=== PATIENT | male | born 1980 | race African-American/Black ===

== ENCOUNTER 2016-05-08 11:43 | Emergency (ER) | payer OTHER, MEDICARE ==
--- NOTE | 2016-05-08 11:55 | ER Document Report ---
ED Medical Screen (RME) - General Stated Complaint: MOUTH PAIN Notes: Mouth pain I greeted and performed a rapid initial assessment of this patient. Comprehensive ED assessment and evaluation of the patient, analysis of test results and completion of the medical decision making process will be conducted by additional ED providers. TRAVEL OUTSIDE OF THE [place] IN LAST 30 DAYS: No - Related Data Allergies/Adverse Reactions: trazodone Allergy (Verified 02/22/16 08:07) Past Medical History Renal/ Medical History: Reports: Hx Benign Prostatic Hyperplasia, Hx Kidney Stones Psychiatric Medical History: Reports: Hx Anxiety, Hx Post Traumatic Stress Disorder - Immunizations Hx Diphtheria, Pertussis, Tetanus Vaccination: Yes Physical Exam - Vital signs Vitals: Temp Pulse Resp BP Pulse Ox 98.3 F 72 14 132/78 H 98 05/08/16 11:54 05/08/16 11:54 05/08/16 11:54 05/08/16 11:54 05/08/16 11:54 Course - Vital Signs Vital signs: Temp Pulse Resp BP Pulse Ox 98.3 F 72 14 132/78 H 98 05/08/16 11:54 05/08/16 11:54 05/08/16 11:54 05/08/16 11:54 05/08/16 11:54
[2016-05-08] MEDS ORDERED: OXYCODONE-ACETAMINOPHEN 5-325 MG TABLET PO ONE (13:33)
--- NOTE | 2016-05-08 13:35 | ER Document Report ---
HPI - HPI Patient complains to provider of: mouth pain Onset: Yesterday Onset/Duration: Worse Quality of pain: Sharp Pain Level: 5 Context: Patient states that he is being referred to an oncologist this week due to a mass in the left side of his mouth. Patient states the mass has been present for the past 2 months. Patient denies any increase in size or appearance of the mass in his mouth. Patient does state that the pain recently increased starting yesterday. Patient denies any dental pain. Patient denies any ear pain. Associated Symptoms: Other - Mouth pain Exacerbated by: Denies Relieved by: Denies Similar symptoms previously: Yes Recently seen / treated by doctor: No - ROS ROS below otherwise negative: Yes Systems Reviewed and Negative: Yes All other systems reviewed and negative - CONSTITUTIONAL Constitutional: DENIES: Fever, Chills - EENT EENT: DENIES: Sore Throat Notes: Pain inside left side of mouth - NEURO Neurology: DENIES: Weakness - CARDIOVASCULAR Cardiovascular: DENIES: Chest pain - RESPIRATORY Respiratory: DENIES: Coughing - GASTROINTESTINAL Gastrointestinal: DENIES: Nausea, Patient vomiting - MUSCULOSKELETAL Musculoskeletal: DENIES: Extremity pain, Neck Pain - DERM Skin Color: Normal Skin Problems: None Past Medical History - General Information source: Patient - Social History Smoking Status: Current Some Day Smoker Chew tobacco use (# tins/day): No Frequency of alcohol use: None Drug Abuse: None Family History: Reviewed & Not Pertinent, CAD, CVA, DM, Hyperlipidemia, Hypertension Patient has suicidal ideation: No Patient has homicidal ideation: No Renal/ Medical History: Reports: Hx Benign Prostatic Hyperplasia, Hx Kidney Stones. Denies: Hx Peritoneal Dialysis Psychiatric Medical History: Reports: Hx Anxiety, Hx Post Traumatic Stress Disorder Past Surgical History: Reports: Hx Oral Surgery - Immunizations Hx Diphtheria, Pertussis, Tetanus Vaccination: Yes Vertical Provider Document - CONSTITUTIONAL Agree With Documented VS: Yes Exam Limitations: No Limitations General Appearance: WD/WN, No Apparent Distress - INFECTION CONTROL TRAVEL OUTSIDE OF THE [place] IN LAST 30 DAYS: No - HEENT HEENT: Atraumatic, Normocephalic. negative: Pharyngeal Exudate, Pharyngeal Tenderness, Pharyngeal Erythema, Tympanic Membrane Red, Tympanic Membrane Bulging Mouth Diagram: 1 - Tender, soft masslike lesion, normal range of motion to TMJ joint, no concern for peritonitis, no potential airway compromise, no sublingual or submental swelling - NECK Neck: Normal Inspection, Supple. negative: Lymphadenopathy-Left, Lymphadenopathy-Right - RESPIRATORY Respiratory: Breath Sounds Normal, No Respiratory Distress, Chest Non-Tender O2 Sat by Pulse Oximetry: 98 - CARDIOVASCULAR Cardiovascular: Regular Rate, Regular Rhythm, No Murmur - MUSCULOSKELETAL/EXTREMETIES Musculoskeletal/Extremeties: MAEW - NEURO Level of Consciousness: Awake, Alert, Appropriate Motor/Sensory: No Motor Deficit - DERM Integumentary: Warm, Dry, No Rash Course - Vital Signs Vital signs: Temp Pulse Resp BP Pulse Ox 98.3 F 72 14 132/78 H 98 05/08/16 11:54 05/08/16 11:54 05/08/16 11:54 05/08/16 11:54 05/08/16 11:54 Discharge - Discharge Clinical Impression: Oral mass, Mouth pain Condition: Stable Disposition: HOME, SELF-CARE Instructions: Growth or Mass, Pending Workup ([facility]), Oral Narcotic Medication ( [facility]) Additional Instructions: Return immediately for any new or worsening symptoms Followup with your primary care provider, call tomorrow to make a followup appointment Follow-up with your oncologist on as planned Prescriptions: Oxycodone HCl/Acetaminophen [Percocet 5-325 mg Tablet] 1 - 2 tab PO ASDIR PRN # 20 tablet PRN Reason: Referrals: [facility] [Provider Group] - Follow up as needed
[2016-05-08 13:47] VITALS: BP 141/80
== END 2016-05-08 13:45 | disposition home or self-care (01) ==
LOC: ER 11:43
DX: K13.79 Other lesions of oral mucosa (principal); R22.0 Localized swelling, mass and lump, head; F17.200 Nicotine dependence, unspecified, uncomplicated
CPT/HCPCS: 99282

== ENCOUNTER 2016-05-09 04:30 | Emergency (ER) | payer OTHER, MEDICARE ==
[2016-05-09] MEDS ORDERED: HYDROMORPHONE HCL INJ/PF 2 MG/ML AMPULE IM ONE (04:50)
--- NOTE | 2016-05-09 04:59 | ER Document Report ---
ED Oral Problem - General Chief Complaint: Jaw Pain Stated Complaint: LEFT JAW PAIN Time seen by provider: 04:56 Mode of Arrival: Ambulatory Information source: Patient TRAVEL OUTSIDE OF THE [place] IN LAST 30 DAYS: No - HPI Patient complains to provider of: Jaw pain, Swelling of jaw Onset: Gradual Quality of pain: Achy, Throbbing Severity: Moderate Pain Level: 4 Swollen jaw/face: Mild Similar symptoms previously: Yes Recently seen / treated by doctor/dentist: Yes Notes: Patient is a 35-year-old male presenting to the emergency room complaining of painful swelling to his left mouth, patient reports he has a history of a mass there and is being referred to an oncologist for further evaluation through the [place] system, the mass is been there for approximately 2-3 months, and over the past few days it's been more painful, he was seen in this emergency room yesterday for similar symptoms and given a prescription for Percocet, and states he has been taking Percocet as prescribed with minimal pain relief, he reports the swelling actually has gone down significantly over the past 24 hours but the pain has continued, he denies any fevers, denies any discharge or foul odor, patient has a history of dipping, reports that is typically the area in his mouth that he would hold the dip - Related Data Allergies/Adverse Reactions: trazodone Allergy (Verified 05/08/16 11:57) Past Medical History - General Information source: Patient - Social History Smoking Status: Current Every Day Smoker Family History: Reviewed & Not Pertinent, CAD, CVA, DM, Hyperlipidemia, Hypertension Renal/ Medical History: Reports: Hx Benign Prostatic Hyperplasia, Hx Kidney Stones. Denies: Hx Peritoneal Dialysis Psychiatric Medical History: Reports: Hx Anxiety, Hx Post Traumatic Stress Disorder Past Surgical History: Reports: Hx Oral Surgery - Immunizations Hx Diphtheria, Pertussis, Tetanus Vaccination: Yes Review of Systems - Review of Systems Constitutional: No symptoms reported EENT: See HPI Cardiovascular: No symptoms reported Respiratory: No symptoms reported Gastrointestinal: No symptoms reported Genitourinary: No symptoms reported Male Genitourinary: No symptoms reported Musculoskeletal: No symptoms reported Skin: No symptoms reported Hematologic/Lymphatic: No symptoms reported Neurological/Psychological: No symptoms reported -: Yes All other systems reviewed and negative Physical Exam - Vital signs Vitals: Resp 18 05/09/16 04:38 Interpretation: Normal - General In distress: None Notes: Appears in moderate pain - General General appearance: Appears well, Alert In distress: None - HEENT Head: Normocephalic, Atraumatic Eyes: Normal Conjunctiva: Normal Extraocular movements intact: Yes Eyelashes: Normal Pupils: PERRL - Respiratory Respiratory status: No respiratory distress - Cardiovascular Rhythm: Regular - Abdominal Inspection: Normal - Back Back: Normal - Extremities General upper extremity: Normal inspection General lower extremity: Normal inspection - Neurological Neuro grossly intact: Yes Orientation: AAOx4 [place] Coma Scale Eye Opening: Spontaneous [place] Coma Scale Verbal: Oriented [place] Coma Scale Motor: Obeys Commands [place] Coma Scale Total: 15 - Psychological Associated symptoms: Normal affect, Normal mood - Skin Skin Temperature: Warm Skin Moisture: Dry Skin Color: Normal - HEENT Mucous membranes: Normal Teeth diagram: 1 - Patient has firm, mass lesion measuring approximately 2.5 cm to the inner mucosa of his left cheek, is swollen and appears to come in contact with the surface of his teeth Course - Re-evaluation Re-evalutation: 05/09/16 05:01 Patient was provided with a dose of pain medication in the emergency room and advised to follow-up with his oncologist and [facility], he was given an additional prescription for some pain medication and advised to return if symptoms worsen, patient acknowledges understanding and agreement with this plan 05/09/16 05:50 Patient reports feeling significant pain relief, he will be discharged home with instructions for follow-up, advised to return if symptoms worsen, patient acknowledges understanding and agreement with this plan - Vital Signs Vital signs: Temp Pulse Resp BP Pulse Ox 97.5 F 94 20 151/108 H 99 05/09/16 04:44 05/09/16 04:44 05/09/16 04:44 05/09/16 04:44 05/09/16 04:44 Discharge - Discharge Clinical Impression: Mouth pain, Oral mass Condition: Stable Disposition: HOME, SELF-CARE Instructions: Growth or Mass, Pending Workup ([facility]) Additional Instructions: Follow up with your primary care provider in one to 2 days. Return to the emergency room immediately if symptoms worsen or any additional concerns. Prescriptions: Oxycodone HCl/Acetaminophen [Percocet 10-325 Mg Tablet] 1 each PO Q6 #30 tablet
[2016-05-09 05:54] VITALS: BP 128/84
== END 2016-05-09 05:56 | disposition home or self-care (01) ==
LOC: ER 04:30
DX: K13.79 Other lesions of oral mucosa (principal); R68.84 Jaw pain; F17.200 Nicotine dependence, unspecified, uncomplicated
CPT/HCPCS: 99283; 96372; J1170

== ENCOUNTER 2018-02-23 12:06 | Emergency (ER) | payer OTHER, MEDICARE ==
[2018-02-23 12:16] VITALS: BP 140/73
--- NOTE | 2018-02-23 13:14 | ER Document Report ---
ED Medical Screen (RME) - General Chief Complaint: Mouth Problem Stated Complaint: MOUTH PAIN, NAUSEA Time Seen by Provider: 02/23/18 12:25 Notes: Patient presents complaining of nausea, sore throat, right upper quadrant pain. History of hepatitis C. History of oral cancer. [facility] but did not feel like he can make it through the weekend. I have greeted and performed a rapid initial assessment of this patient. A comprehensive ED assessment and evaluation of the patient, analysis of test results and completion of the medical decision making process will be conducted by additional ED providers. TRAVEL OUTSIDE OF THE [place] IN LAST 30 DAYS: No - Related Data Allergies/Adverse Reactions: trazodone Allergy (Verified 05/08/16 11:57) Past Medical History Renal/ Medical History: Reports: Hx Benign Prostatic Hyperplasia, Hx Kidney Stones. Denies: Hx Peritoneal Dialysis Psychiatric Medical History: Reports: Hx Anxiety, Hx Post Traumatic Stress Disorder Past Surgical History: Reports: Hx Oral Surgery - Immunizations Hx Diphtheria, Pertussis, Tetanus Vaccination: Yes Physical Exam - Vital signs Vitals: Temp Pulse Resp BP Pulse Ox 98.4 F 67 16 140/73 H 99 02/23/18 12:14 02/23/18 12:14 02/23/18 12:14 02/23/18 12:14 02/23/18 12:14 Course - Vital Signs Vital signs: Temp Pulse Resp BP Pulse Ox 98.4 F 67 16 140/73 H 99 02/23/18 12:14 02/23/18 12:14 02/23/18 12:14 02/23/18 12:14 02/23/18 12:14
[2018-02-23] MEDS ORDERED: ONDANSETRON 4 MG TAB.RAPDIS PO ONE (13:15)
[2018-02-23 13:51] LABS: ABSOLUTE BASOPHILS # (AUTO) 0.1 10^3/uL (0.0-0.2); ABSOLUTE EOSINOPHILS # (AUTO) 0.2 10^3/uL (0.0-0.6); ABSOLUTE LYMPHOCYTES (AUTO) 3.1 10^3/uL (0.5-4.7); ABSOLUTE MONOCYTES (AUTO) 0.6 10^3/uL (0.1-1.4); ABSOLUTE NEUT (AUTO) 2.3 10^3/uL (1.7-8.2); EOSINOPHILS % (AUTO) 3.2 % (0-6); HEMATOCRIT 43.1 % (37.9-51.0); HEMOGLOBIN 14.5 g/dL (13.5-17.0); LYMPHOCYTES % (AUTO) 49.4 % (13-45); MEAN CORPUSCULAR HEMOGLOBIN 28.6 pg (27.0-33.4); MEAN CORPUSCULAR HGB CONC 33.6 g/dL (32.0-36.0); MEAN CORPUSCULAR VOLUME 85 fl (80-97); MONOCYTES % (AUTO) 9.8 % (3-13); PLATELET COUNT 332 10^3/uL (150-450); RED BLOOD COUNT 5.06 10^6/uL (4.35-5.55); RED CELL DISTRIBUTION WIDTH 14.1 % (11.5-14.0); SEGMENTED NEUTROPHILS % (AUTO) 36.6 % (42-78); TOTAL CELLS COUNTED % (AUTO) 100 %; WHITE BLOOD COUNT 6.3 10^3/uL (4.0-10.5)
[2018-02-23 14:06] LABS: ALANINE AMINOTRANSFERASE 41 U/L (21-72); ALBUMIN 4.3 g/dL (3.5-5.0); ALKALINE PHOSPHATASE 66 U/L (38-126); ANION GAP 12 (5-19); ASPARTATE AMINO TRANSFERASE 29 U/L (17-59); BILIRUBIN,DIRECT 0.1 mg/dL (0.0-0.4); BILIRUBIN,TOTAL 0.6 mg/dL (0.2-1.3); BLOOD UREA NITROGEN 16 mg/dL (7-20); CALCIUM 9.8 mg/dL (8.4-10.2); CARBON DIOXIDE 27 mmol/L (22-30); CHLORIDE 105 mmol/L (98-107); GLUCOSE 87 mg/dL (75-110); LIPASE 128.9 U/L (23-300); POTASSIUM 4.5 mmol/L (3.6-5.0); TOTAL PROTEIN 7.7 g/dL (6.3-8.2)
== END 2018-02-23 14:32 | disposition left against medical advice (07) ==
LOC: ER 12:06
DX: J02.9 Acute pharyngitis, unspecified (principal); R11.0 Nausea; R10.11 Right upper quadrant pain; Z85.819 Personal history of malignant neoplasm of unspecified site of lip, oral cavity, and pharynx; Z88.8 Allergy status to other drugs, medicaments and biological substances; Z53.20 Procedure and treatment not carried out because of patient's decision for unspecified reasons
CPT/HCPCS: 99281; 36415; 83690; 85025; 80053; S0119